=== PATIENT | male | born 1980 | race African-American/Black ===

== ENCOUNTER 2019-01-24 03:36 | Emergency (ER) | payer OTHER ==
[2019-01-24] MEDS: SOD CHLORIDE 0.9% 1,000 ML IV (04:17)
[2019-01-24] MEDS: ONDANSETRON 4 MG INJ IV (04:17)
[2019-01-24] MEDS: NALOXONE 2 MG SYG IV (04:17)
[2019-01-24 04:48] LABS: ETHANOL < 10.0 mg/dl (0-0)
== END 2019-01-24 06:33 ==
LOC: E/R 03:36
DX: T42.4X1A Poisoning by benzodiazepines, accidental (unintentional), initial encounter (principal); F15.10 Other stimulant abuse, uncomplicated; Y92.9 Unspecified place or not applicable; Z87.891 Personal history of nicotine dependence
CPT/HCPCS: 36415; 80307; 93005; 96374; 96375; 99284-25